=== PATIENT | female | born 1965 | race Caucasian/White ===

== ENCOUNTER 2019-08-10 06:46 | Inpatient (IN) | payer SELFPAY ==
[~2019-08-10] VITALS: Ht 162.5 cm; Wt 77.8 kg
[2019-08-10] MEDS ORDERED: RT-ALBUTEROL SULF 2.5 MG/3 ML PRE-MIX VIAL INH STA (07:04)
[2019-08-10] MEDS ORDERED: LACTATED RINGERS 1,000 ML IV ONE (07:04)
--- NOTE | 2019-08-10 07:10 | ED Respiratory ---
General Chief Complaint: Cough/Cold/Flu Symptoms Stated Complaint: FEVER/NAUSEA/DIZZINESS Source: patient Exam Limitations: no limitations History of Present Illness Date Seen by Provider: Aug 10, 2019 Time Seen by Provider: 06:54 Initial Comments Patient presents ER by private conveyance with chief complaint 4 days progressively worsening cough, fevers, body aches, malaise. Her cough has been productive. She does not have a history of asthma COPD or smoking. She has history of high blood pressure and hypothyroidism. She denies any heart history. No swelling around the hands or feet. No known exposures. She has been using Excedrin with her last dose sometime in the night to control her fever and malaise. No history of immunocompromise. She relates that she has not been on her medications for over a year. She is to follow with a female doctor here in [place] but she does not remember the name. Allergies and Home Medications Allergies Coded Allergies: morphine (Verified Allergy, Unknown, 08/10/19) Patient Home Medication List Home Medication List Reviewed: Yes Review of Systems Review of Systems Constitutional: see HPI, chills, fever, malaise EENTM: No ear discharge, No ear pain Respiratory: cough, phlegm; No short of breath, No wheezing Cardiovascular: No chest pain, No Hx of Intervention Gastrointestinal: No abdominal pain; nausea, vomiting Genitourinary: No discharge, No dysuria Musculoskeletal: No back pain, No joint pain Skin: No pruritus, No rash Psychiatric/Neurological: Denies Anxiety, Denies Depressed All Other Systems Reviewed Negative Unless Noted: Yes Past Evqohsc-Xxelxg-Xwcfhk Hx Patient Social History Alcohol Use: Denies Use Recreational Drug Use: No Smoking Status: Never a Smoker Recent Foreign Travel: No Contact w/Someone Who Travel: No Physical Exam Vital Signs - First Documented 08/10/19 08/10/19 06:55 07:59 Temp 37.2 Pulse 105 Resp 18 B/P (MAP) 178/112 (134) Pulse Ox 95 O2 Delivery Room Air O2 Flow Rate 2.00 Capillary Refill : Height: '" Weight: lbs. oz. kg; BMI Method: General Appearance: WD/WN, mild distress Eyes: Bilateral Eye Normal Inspection, Bilateral Eye PERRL, Bilateral Eye EOMI HEENT: PERRL/EOMI, normal ENT inspection, pharynx normal, other (clear mucoid effusion with mild retractions bilaterally without tenderness to manipulation bilateral TMs.) Neck: non-tender, full range of motion, supple, normal inspection Respiratory: no accessory muscle use, respiratory distress (minor, oxygen sats 92% on room air after walking to the room.), rhonchi (left worse than right), wheezing (bilateral) Cardiovascular: normal peripheral pulses, regular rate, rhythm, tachycardia (105 hr) Neurologic/Psychiatric: alert, normal mood/affect, oriented x 3 Skin: normal color, warm/dry Focused Exam Lactate Level 08/10/19 07:10: Lactic Acid Level 1.62 Lactic Acid Level Laboratory Tests Test 08/10/19 07:10 Lactic Acid Level 1.62 MMOL/L (0.50-2.00) Progress/Results/Core Measures Suspected Sepsis SIRS Temperature: Pulse: Respiratory Rate: Laboratory Tests 08/10/19 07:10: White Blood Count 7.7 Blood Pressure / Mean: 08/10/19 07:10: Lactic Acid Level 1.62 Laboratory Tests 08/10/19 07:10: Creatinine 0.99, INR Comment 1.0, Platelet Count 239, Total Bilirubin 0.4 Results/Orders Lab Results Laboratory Tests Test 08/10/19 07:10 08/10/19 08:55 Range/Units White Blood Count 7.7 4.3-11.0 10^3/uL Red Blood Count 4.96 4.35-5.85 10^6/uL Hemoglobin 15.8 11.5-16.0 G/DL Hematocrit 47 35-52 % Mean Corpuscular Volume 94 80-99 FL Mean Corpuscular Hemoglobin 32 25-34 PG Mean Corpuscular Hemoglobin Concent 34 32-36 G/DL Red Cell Distribution Width 12.4 10.0-14.5 % Platelet Count 239 130-400 10^3/uL Mean Platelet Volume 9.6 7.4-10.4 FL Neutrophils (%) (Auto) 72 42-75 % Lymphocytes (%) (Auto) 17 12-44 % Monocytes (%) (Auto) 10 0-12 % Eosinophils (%) (Auto) 0 0-10 % Basophils (%) (Auto) 1 0-10 % Neutrophils # (Auto) 5.5 1.8-7.8 X 10^3 Lymphocytes # (Auto) 1.3 1.0-4.0 X 10^3 Monocytes # (Auto) 0.8 0.0-1.0 X 10^3 Eosinophils # (Auto) 0.0 0.0-0.3 10^3/uL Basophils # (Auto) 0.1 0.0-0.1 10^3/uL Prothrombin Time 13.2 12.2-14.7 SEC INR Comment 1.0 0.8-1.4 Activated Partial Thromboplast Time 29 24-35 SEC Sodium Level 137 135-145 MMOL/L Potassium Level 3.4 L 3.6-5.0 MMOL/L Chloride Level 99 98-107 MMOL/L Carbon Dioxide Level 24 21-32 MMOL/L Anion Gap 14 5-14 MMOL/L Blood Urea Nitrogen 7 7-18 MG/DL Creatinine 0.99 0.60-1.30 MG/DL Estimat Glomerular Filtration Rate 58 BUN/Creatinine Ratio 7 Glucose Level 159 H 70-105 MG/DL Lactic Acid Level 1.62 0.50-2.00 MMOL/L Calcium Level 8.7 8.5-10.1 MG/DL Corrected Calcium 8.7 8.5-10.1 MG/DL Total Bilirubin 0.4 0.1-1.0 MG/DL Aspartate Amino Transf (AST/SGOT) 19 5-34 U/L Alanine Aminotransferase (ALT/SGPT) 9 0-55 U/L Alkaline Phosphatase 94 40-136 U/L Total Protein 7.4 6.4-8.2 GM/DL Albumin 4.0 3.2-4.5 GM/DL Blood Gas Puncture Site LEFT RADIAL Blood Gas Patient Temperature NA Arterial Blood pH 7.46 H 7.37-7.43 Arterial Blood Partial Pressure CO2 38 35-45 MMHG Arterial Blood Partial Pressure O2 64 L 79-93 MMHG Arterial Blood HCO3 27 23-27 MMOL/L Arterial Blood Total CO2 28.2 21.0-31.0 MMOL/L Arterial Blood Oxygen Saturation 93 L 94-100 % Arterial Blood Base Excess 3.1 H -2.5-2.5 MMOL/L Yovany Test YES-POS Blood Gas Ventilator Setting NO Blood Gas Inspired Oxygen 2 L Micro Results Microbiology 08/10/19 Influenza Types A,B Antigen (LYNNE) - Final, Complete My Orders Orders - BJORN IZQUIERDO Chest Pa/Lat (2 View) (08/10/19 07:01) Cbc With Automated Diff (08/10/19 07:01) Comprehensive Metabolic Panel (08/10/19 07:01) Influenza A And B Antigens (08/10/19 07:01) Ed Iv/Invasive Line Start (08/10/19 07:01) Ed Iv/Invasive Line Start (08/10/19 07:04) Lactated Ringers (Lr 1000 Ml Iv Solution (08/10/19 07:04) Albuterol Pre-Mix Nebs (Rt) (Proventil (08/10/19 07:04) Svn Small Volume Nebulizer (08/10/19 07:04) Ketorolac Injection (Toradol Injection) (08/10/19 07:15) Ondansetron Injection (Zofran Injectio (08/10/19 07:15) Arterial Blood Gas (08/10/19 08:07) Blood Culture (08/10/19 08:07) Sputum Culture (08/10/19 08:07) Protime With Inr (08/10/19 08:07) Partial Thromboplastin Time (08/10/19 08:07) Ed Iv/Invasive Line Start (08/10/19 08:07) Ed Iv/Invasive Line Start (08/10/19 08:07) Vital Signs Adult Sepsis Patie Q15M (08/10/19 08:07) O2 (08/10/19 08:07) Remove Rings In Anticipation O (08/10/19 08:07) Lactic Acid Analyzer (08/10/19 08:07) Ceftriaxone For Iv Use (Rocephin For I (08/10/19 08:15) Azithromycin Injection (Zithromax Inject (08/10/19 08:15) Ed Iv/Invasive Line Start (08/10/19 08:07) Ns Iv 500 Ml (Sodium Chloride 0.9%) (08/10/19 08:07) Medications Given in ED Current Medications Medications Dose Ordered Sig/Jose Route Start Time Stop Time Status Last Admin Dose Admin Azithromycin 500 mg/Sodium Chloride 250 ml @ 250 mls/hr ONCE ONCE IV 08/10/19 08:15 08/10/19 09:14 DC 08/10/19 08:25 250 MLS/HR Ceftriaxone Sodium 1000 mg/ Sterile Water 10 ml @ 200 mls/hr ONCE ONCE IV 08/10/19 08:15 08/10/19 08:17 DC 08/10/19 08:24 200 MLS/HR Ketorolac Tromethamine 30 mg ONCE ONCE IVP 08/10/19 07:15 08/10/19 07:16 DC 08/10/19 08:25 30 MG Lactated Ringer's 1,000 ml @ 0 mls/hr Q0M ONCE IV 08/10/19 07:04 08/10/19 07:05 DC 08/10/19 07:26 0 MLS/HR Ondansetron HCl 4 mg ONCE ONCE IVP 08/10/19 07:15 08/10/19 07:16 DC 08/10/19 07:25 4 MG Sodium Chloride 500 ml @ 0 mls/hr Q0M ONCE IV 08/10/19 08:07 08/10/19 08:10 DC 08/10/19 08:25 0 MLS/HR Vital Signs/I&O 08/10/19 08/10/19 06:55 07:59 Temp 37.2 Pulse 105 99 Resp 18 18 B/P (MAP) 178/112 (134) 103/84 (90) Pulse Ox 95 92 O2 Delivery Room Air Nasal Cannula O2 Flow Rate 2.00 Capillary Refill : Progress Note #1: Time: 07:11 Progress Note Reassess her after albuterol. Ondansetron for her nausea. She is not having any fever at the moment but we can do some Toradol for body aches liter of lactated Ringer's to start. Technically she meets sepsis criteria however if she has influenza will not drive any further. We'll get a chest x-ray to help differenti ate a pneumonia from a bronchitis. Labs. Progress Note #2: Time: 07:52 Progress Note Breathing treatment the patient's wheezing and rhonchi 1 week. However her oxygen sats got down to about 86%. We tried moving the probe as well as putting a probe on her earlobe and still really getting about 88% on room air. Put her on 2 L nasal cannula and this brought her up to the 90s. 500 cc of fluids were in and her heart rate was about 100. Progress Note #3: Time: 08:10 Progress Note Her labs are unremarkable. Oxygen saturation is still about 92-93% on 2 L by nasal cannula. Heart rate of 100. Plan to do the full sepsis evaluation with an ABG and give her another 500 cc of fluids to bring her up over 20 mils liters per kilogram. Patient says she really doesn't feel much better than when we started. Blood pressures better at 169/79. We'll pursue inpatient management for her hypoxia secondary to possible occult pneumonia. Rocephin and azithromycin started. Diagnostic Imaging Diagonstic Imaging: Xray Plain Films/CT/US/NM/MRI: chest (two-view) Comments No acute cardiopulmonary process noted on the two-view chest x-ray. NAME: GELY NICHOLS [facility] REC#: [id number] PT STATUS: REG ER : 1965 PHYSICIAN: BJORN IZQUIERDO MD ADMIT DATE: 08/10/19/ER FS Signed Date of Exam:08/10/19 CHEST PA/LAT (2 VIEW) INDICATION: Cough COMPARISON: None. FINDINGS: Frontal and lateral views the chest demonstrate clear lungs bilaterally. The heart size is normal. There is no pneumothorax. Osseous structures are normal. IMPRESSION: No acute findings. Normal chest. Dictated by: Dictated on workstation # [id number] Dict: 08/10/1937 Trans: 08/10/19 0737 [facility] [id number] Interpreted by: ELISE AGUIRRE Electronically signed by: ELISE AGUIRRE 08/10/19 0737 Reviewed: Reviewed by Me Departure Communication (Admissions) Time/Spoke to Admitting Phy: 09:15 Discussed case lab imaging findings with Dr. Donald plan for antibiotics oxygen and fluids and she agrees with admission to the floor. Impression Primary Impression: Pneumonia Qualified Codes: J18.9 - Pneumonia, unspecified organism Additional Impressions: Sepsis Qualified Codes: A41.9 - Sepsis, unspecified organism; R65.20 - Severe sepsis without septic shock; J96.01 - Acute respiratory failure with hypoxia Hypoxia Disposition: ADMITTED INPATIENT Condition: Stable Admissions Decision to Admit Reason: Admit from ER (General) Decision to Admit/Date: Aug 10, 2019 Time/Decision to Admit Time: 09:00 Departure-Patient Inst. Referrals: NO,LOCAL PHYSICIAN (PCP/Family) Primary Care Physician BJORN IZQUIERDO Aug 10, 2019 07:10
[2019-08-10] MEDS ORDERED: ONDANSETRON 4 MG/2 ML (SDV) Z0FRAN IVP ONE (07:15)
[2019-08-10] MEDS ORDERED: KETOROLAC 30 MG/ML VIAL IVP ONE (07:15)
[2019-08-10 07:35] LABS: BASOPHILS % (AUTO) 1 % (0-10); EOSINOPHILS % (AUTO) 0 % (0-10); HEMATOCRIT 47 % (35-52); HEMOGLOBIN 15.8 G/DL (11.5-16.0); LYMPHOCYTES % (AUTO) 17 % (12-44); MEAN CORPUSCULAR HEMOGLOBIN 32 PG (25-34); MEAN CORPUSCULAR HGB CONC 34 G/DL (32-36); MEAN CORPUSCULAR VOLUME 94 FL (80-99); MEAN PLATELET VOLUME 9.6 FL (7.4-10.4); MONOCYTES % (AUTO) 10 % (0-12); PLATELET COUNT 239 10^3/uL (130-400); RED CELL DISTRIBUTION WIDTH 12.4 % (10.0-14.5); WHITE BLOOD COUNT 7.7 10^3/uL (4.3-11.0)
[2019-08-10 07:36] LABS: BASOPHILS # (AUTO) 0.1 10^3/uL (0.0-0.1); LYMPHOCYTES # (AUTO) 1.3 X 10^3 (1.0-4.0); MONOCYTES # (AUTO) 0.8 X 10^3 (0.0-1.0); NEUTROPHILS # (AUTO) 5.5 X 10^3 (1.8-7.8); NEUTROPHILS % (AUTO) 72 % (42-75)
--- NOTE | 2019-08-10 07:38 | Diagnostic Imaging Report ---
INDICATION: Cough COMPARISON: None. FINDINGS: Frontal and lateral views the chest demonstrate clear lungs bilaterally. The heart size is normal. There is no pneumothorax. Osseous structures are normal. IMPRESSION: No acute findings. Normal chest. Dictated by: Dictated on workstation # [id number]
[2019-08-10 07:52] LABS: BILIRUBIN,TOTAL 0.4 MG/DL (0.1-1.0); CALCIUM 8.7 MG/DL (8.5-10.1); CREATININE SERUM 0.99 MG/DL (0.60-1.30); POTASSIUM 3.4 MMOL/L (3.6-5.0); TOTAL PROTEIN 7.4 GM/DL (6.4-8.2)
[2019-08-10 07:59] VITALS: BP 103/84
[2019-08-10] MEDS ORDERED: NS IV 500 ML 500 ML IV ONE (08:07)
[2019-08-10] MEDS ORDERED: cefTRIAXone FOR IV USE 1,000 MG in WATER (STERILE) FOR INJECTION 10 ML IV ONE (08:15)
[2019-08-10] MEDS ORDERED: AZITHROMYCIN INJECTION 500 MG in NS (IVPB) 250 ML IV ONE (08:15)
[2019-08-10 09:03] LABS: PROTHROMBIN TIME PATIENT 13.2 SEC (12.2-14.7)
[2019-08-10 09:06] LABS: ABG BASE EXCESS 3.1 MMOL/L (-2.5-2.5); ABG OXYGEN SATURATION 93 % (94-100); ABG PCO2 38 MMHG (35-45); ABG PH 7.46 (7.37-7.43); ABG PO2 64 MMHG (79-93); ABG TCO2 28.2 MMOL/L (21.0-31.0); ALLENS TEST YES-POS
[2019-08-10 09:07] LABS: INSPIRED O2 2 L; VENTILATOR NO
[2019-08-10 10:22] VITALS: BP 139/87
[2019-08-10] MEDS ORDERED: MECLIZINE 25 MG (ANTIVERT) TAB PO PRN (10:45)
[2019-08-10] MEDS ORDERED: ANTACID SUSP 30 ML UDC (MYLANTA) PO PRN (10:45)
[2019-08-10] MEDS ORDERED: KETOROLAC 15 MG/ML VIAL IVP PRN (10:45)
[2019-08-10] MEDS ORDERED: ONDANSETRON 4 MG/2 ML (SDV) Z0FRAN IVP PRN (10:45)
[2019-08-10] MEDS: LACTATED RINGERS 1,000 ML IV SCH ×3 (11:12→23:26)
--- NOTE | 2019-08-10 11:17 | NUR ---
GELY NICHOLS admitted to room 412-1, with an admitting diagnosis of sepsis/pneum/hypoxia, on 08/10/19 from , accompanied by NANCY .GELY NICHOLS introduced to surroundings, call light, bed controls, phone, TV, temperature control, lights, meal times, smoking policy, visitor policy, side rail policy, bathrooms and showers. Patient Rights given to patient in the handbook. GELY NICHOLS verbalizes understanding that [facility] is not responsible for the loss or damage to any personal effects or valuables that are kept in the patients posession during their hospitalization. GELY NICHOLS verbalizes understanding of Interdisciplinary Patient Education. Patient and/or family were informed about the Rapid Response Team and its purpose.
[2019-08-10 11:30] VITALS: BP 178/112
[2019-08-10] MEDS: cefTRIAXone 1,000 MG/SWFI 10 ML IV PUSH IV SCH ×2 (11:42)
[2019-08-10] MEDS: AZITHROMYCIN 250 MG TAB (ZITHROMAX) PO SCH (11:44)
[2019-08-10 12:00] VITALS: BP 161/86
[2019-08-10] MEDS ORDERED: FLU QUADRIvalent (5+ YOA) 2019-2020 (AFLURIA) 0.5 ML IM ONE (12:30)
--- NOTE | 2019-08-10 12:33 | History & Physical-Hospitalist ---
History of Present Illness HPI/Chief Complaint CC: Fever with hypoxia and PNA HPI: This is a 54yoWF who does not have a PCP but is to take thyroid medicine and Toprol who has not taken the meds for "years" who presented to the [facility] ER with dyspnea and fever and found to have hypoxia. CXR was not revealing of infiltrate but clinically she has PNA and will be treated as such. 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 Influenza was negative and HR has improved from 110 to the 90's now. Source: patient, RN/MD Exam Limitations: no limitations Date Seen 08/10/19 Time Seen by a Provider: 11:45 Attending Physician Asuncion Machuca DO PCP No,Local Physician Referring Physician Date of Admission Aug 10, 2019 at 09:31 Home Medications & Allergies Home Medications Reviewed patient Home Medication Reconciliation performed by pharmacy medication reconciliations survey technician and/or nursing. Patients Allergies have been reviewed. Allergies Allergies Coded Allergies morphine (Verified Allergy, Unknown, 08/10/19) Past Gstvutx-Hzwwfd-Kmnvhd Hx Past Med/Social Hx: Reviewed Nursing Past Med/Soc Hx, Reviewed and Corrections made Patient Social History Marrital Status: single Employed/Student: employed ([employer]) Alcohol Use: Denies Use Recreational Drug Use: No Smoking Status: Former Smoker 2nd Hand Smoke Exposure: No Recent Foreign Travel: No Contact w/other who traveled: No Recent Hopitalizations: No Recent Infectious Disease Expo: No Seasonal Allergies Seasonal Allergies: No Past Medical History Surgeries: Hysterectomy, Thyroidectomy Cardiac: Hypertension Hysterectomy Endocrine: Hypothyroidsim History of Blood Disorders: No Review of Systems Constitutional: see HPI, chills, diaphoresis, dizziness, fever, malaise, weakness EENTM: no symptoms reported Respiratory: cough, dyspnea on exertion, short of breath, wheezing Cardiovascular: no symptoms reported Gastrointestinal: no symptoms reported Genitourinary: no symptoms reported Musculoskeletal: no symptoms reported Skin: no symptoms reported Psychiatric/Neurological: No Symptoms Reported All Other Systems Reviewed Negative Unless Noted: Yes Physical Exam Physical Exam Vital Signs Vital Signs - First Documented 08/10/19 08/10/19 08/10/19 06:55 07:59 09:51 Temp 37.2 Pulse 105 Resp 18 B/P (MAP) 178/112 (134) Pulse Ox 95 O2 Delivery Room Air O2 Flow Rate 2.00 FiO2 94 Capillary Refill : Less Than 3 Seconds Height, Weight, BMI Height: '" Weight: lbs. oz. kg; 27.00 BMI Method: General Appearance: WD/WN, Chronically ill, Mild Distress Eyes: Right Eye Normal Inspection, Right Eye PERRL HEENT: PERRL/EOMI, Normal ENT Inspection, Pharynx Normal, Moist Mucous M embranes Neck: Full Range of Motion, Normal Inspection, Non Tender Respiratory: Chest Non Tender, No Accessory Muscle Use, No Respiratory Distress, Crackles, Decreased Breath Sounds, Wheezing Cardiovascular: Regular Rate, Rhythm, No Edema, No Gallop, No JVD, No Murmur, Normal Peripheral Pulses Gastrointestinal: Normal Bowel Sounds, No Organomegaly, No Pulsatile Mass, Non Tender, Soft Back: Normal Inspection, No CVA Tenderness, No Vertebral Tenderness Extremity: Normal Capillary Refill, Normal Inspection, Normal Range of Motion, Non Tender, No Calf Tenderness, No Pedal Edema Neurologic/Psychiatric: Alert, Oriented x3, No Motor/Sensory Deficits, Normal Mood/Affect Skin: Normal Color, Warm/Dry Lymphatic: No Adenopathy Results Results/Procedures Labs Laboratory Tests 08/10/19 07:10 Patient resulted labs reviewed. Assessment/Plan Admission Diagnosis Assessment: Sepsis PNA clinically without infiltrate on CXR likely due to dehydration will repeat tomorrow Wheezing with hypoxia and fever Former smoker Non-compliant with thyroid supplement and Toprol checking TSH Plan: Abx Nebs O2 IVF Anti-tussives IV steroids Check TSH Admission Status: Inpatient Order (span 2 midnights) Reason for Inpatient Admission: Hypoxia with fever and PNA Diagnosis/Problems Diagnosis/Problems (1) Sepsis Status: Acute Qualifiers: Sepsis type: sepsis due to unspecified organism Sepsis acute organ dysfunction status: with acute organ dysfunction Severe sepsis acute organ dysfunction type: acute respiratory failure Acute respiratory failure type: with hypoxia Severe sepsis shock status: without septic shock Qualified Codes: A41.9 - Sepsis, unspecified organism; R65.20 - Severe sepsis without septic shock; J96.01 - Acute respiratory failure with hypoxia (2) Pneumonia Status: Acute Qualifiers: Pneumonia type: due to unspecified organism Laterality: unspecified laterality Lung location: unspecified part of lung Qualified Codes: J18.9 - Pneumonia, unspecified organism (3) Hypoxia Status: Acute Clinical Quality Measures DVT/VTE Risk/Contraindication: Risk Factor Score Per Nursin RFS Level Per Nursing on Admit: 2=Moderate ASUNCION MACHUCA DO Aug 10, 2019 12:33
[2019-08-10] MEDS: methylPREDNISolone 40 MG/ML (Solu-MEDROL) VIAL IV SCH ×3 (13:58→23:26)
[2019-08-10] MEDS: ENOXAPARIN 40 MG/0.4 ML (LOVENOX) SYR SC SCH (13:59)
[2019-08-10] MEDS: guaiFENesin/CODEINE (ROBITUSSIN AC) 10ML UDC PO PRN ×2 (13:59→18:12)
[2019-08-10] MEDS ORDERED: TETR15DR16 OU (14:29)
[2019-08-10] MEDS ORDERED: IBUP-2473 PO (14:29)
--- NOTE | 2019-08-10 14:29 | NUR ---
SPOKE WITH THE PT TO COMPLETE THE MED REC. PT STATES SHE IS PRESCRIBED LEVOTHYROXINE AND METOPROLOL BUT DOES NOT TAKE THEM AND IT HAS BEEN SEVERAL MONTHS SINCE SHE HAS TAKEN THEM CONSISTENTLY. ACCORDING TO THE PT SHE ONLY USES OTC MEDS IBUPROFEN PRN AND VISINE REDNESS DROPS
[2019-08-10] MEDS: RT-ALBUTEROL SULF 2.5 MG/3 ML PRE-MIX VIAL INH SCH ×2 (15:33→21:06)
[2019-08-10 15:59] VITALS: BP 141/69
[2019-08-10] MEDS: ACETAMINOPHEN 500 MG TAB (TYLENOL) PO PRN (18:12)
[2019-08-10 19:45] VITALS: BP 169/94
[2019-08-11] VITALS (7 sets, daily range): BP systolic 135–167; BP diastolic 74–92
[2019-08-11] MEDS: LACTATED RINGERS 1,000 ML IV SCH ×2 (01:21→08:10)
[2019-08-11] MEDS: RT-ALBUTEROL SULF 2.5 MG/3 ML PRE-MIX VIAL INH SCH ×4 (01:43→20:30)
[2019-08-11 04:05] LABS: BASOPHILS % (AUTO) 0 % (0-10); EOSINOPHILS % (AUTO) 0 % (0-10); HEMATOCRIT 40 % (35-52); HEMOGLOBIN 13.6 G/DL (11.5-16.0); LYMPHOCYTES # (AUTO) 0.7 X 10^3 (1.0-4.0); LYMPHOCYTES % (AUTO) 11 % (12-44); MEAN CORPUSCULAR HEMOGLOBIN 32 PG (25-34); MEAN CORPUSCULAR HGB CONC 34 G/DL (32-36); MEAN CORPUSCULAR VOLUME 94 FL (80-99); MEAN PLATELET VOLUME 9.8 FL (7.4-10.4); MONOCYTES # (AUTO) 0.2 X 10^3 (0.0-1.0); MONOCYTES % (AUTO) 3 % (0-12); NEUTROPHILS # (AUTO) 5.4 X 10^3 (1.8-7.8); NEUTROPHILS % (AUTO) 87 % (42-75); PLATELET COUNT 215 10^3/uL (130-400); RED CELL DISTRIBUTION WIDTH 12.7 % (10.0-14.5); WHITE BLOOD COUNT 6.2 10^3/uL (4.3-11.0)
[2019-08-11 04:23] LABS: ALANINE AMINOTRANSFERASE 12 U/L (0-55); ALBUMIN 3.7 GM/DL (3.2-4.5); ALKALINE PHOSPHATASE 81 U/L (40-136); BILIRUBIN,TOTAL 0.2 MG/DL (0.1-1.0); BUN/CREATININE RATIO 12; CALCIUM 8.6 MG/DL (8.5-10.1); CARBON DIOXIDE 20 MMOL/L (21-32); CHLORIDE 109 MMOL/L (98-107); CREATININE SERUM 0.77 MG/DL (0.60-1.30); GFR ESTIMATED > 60; GLUCOSE 189 MG/DL (70-105); POTASSIUM 3.3 MMOL/L (3.6-5.0); SODIUM 141 MMOL/L (135-145); TOTAL PROTEIN 6.6 GM/DL (6.4-8.2)
[2019-08-11 04:57] LABS: LYMPHOCYTES % (MANUAL) 13 %; MONOCYTES % (MANUAL) 2 %; NEUTROPHILS % (MANUAL) 85 %
[2019-08-11] MEDS: methylPREDNISolone 40 MG/ML (Solu-MEDROL) VIAL IV SCH ×3 (05:20→18:23)
[2019-08-11] MEDS: FLUTICASONE NASAL SPRAY (FLONASE) 16 GM BTL NS SCH (08:14)
--- NOTE | 2019-08-11 09:50 | Diagnostic Imaging Report ---
Indication: Dyspnea, pneumonia. Comparison: 08/10/2019. Discussion: Two views of the chest were obtained. Stable normal heart size. No focal consolidation, pleural fluid, or pneumothorax. No osseous abnormality. Impression: 1. Stable negative chest. Dictated by: Dictated on workstation # [id number]
[2019-08-11] MEDS: RT-ALBUTEROL SULF 2.5 MG/3 ML PRE-MIX VIAL INH PRN (10:48)
[2019-08-11] MEDS ORDERED: RT-ALBUTEROL SULF 2.5 MG/3 ML PRE-MIX VIAL INH ONE (11:00)
[2019-08-11] MEDS: ACETAMINOPHEN 500 MG TAB (TYLENOL) PO PRN (11:04)
[2019-08-11 11:21] LABS: ABG BASE EXCESS -2.8 MMOL/L (-2.5-2.5); ABG OXYGEN SATURATION 93 % (94-100); ABG PCO2 27 MMHG (35-45); ABG PH 7.49 (7.37-7.43); ABG PO2 61 MMHG (79-93)
[2019-08-11 11:22] LABS: ALLENS TEST YES-POS; INSPIRED O2 2; PATIENT TEMP 36.8; VENTILATOR NO
[2019-08-11] MEDS: ENOXAPARIN 40 MG/0.4 ML (LOVENOX) SYR SC SCH (12:29)
[2019-08-11] MEDS ORDERED: LEVOTHYROXINE 25 MCG (LEVOTHROID) TAB PO NR (13:15)
--- NOTE | 2019-08-11 13:15 | Progress Note - Hospitalist ---
Subjective HPI/CC On Admission Date Seen by Provider: Aug 11, 2019 Time Seen by Provider: 09:30 CC: Fever with hypoxia and PNA HPI: This is a 54yoWF who does not have a PCP but is to take thyroid medicine and Toprol who has not taken the meds for "years" who presented to the [facility] ER with dyspnea and fever and found to have hypoxia. CXR was not revealing of infiltrate but clinically she has PNA and will be treated as such. 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 Influenza was negative and HR has improved from 110 to the 90's now. Subjective/Events-last exam Patient doing ok but dyspneic after the least bit of activity Wheezing a bit better Dyspnea was quite significant so checked CXR which was stable and d-dimer essentially normal and repeat ABG revealed hypoxemia 61 with no acidosis so gave Nebs and O2 and Xanax to help her with the tachypnea Maintained on Lovenox since admit Thyroid supplement started since TSH 21 BP stable Review of Systems General: Fatigue Pulmonary: Dyspnea, Cough Focused Exam Lactate Level 08/10/19 07:10: Lactic Acid Level 1.62 Objective Exam Vital Signs Vital Signs Date Time Temp Pulse Resp B/P (MAP) Pulse Ox O2 Delivery O2 Flow Rate FiO2 08/11/19 14:59 97 Nasal Cannula 2.00 08/11/19 12:15 36.2 102 24 157/78 (104) 08/11/19 08:00 94 Capillary Refill : Less Than 3 SecondsLess Than 3 Seconds General Appearance: WD/WN, Chronically ill, Mild Distress Respiratory: No Respiratory Distress, Accessory Muscle Use, Crackles, Decreased Breath Sounds Cardiovascular: Regular Rate, Rhythm Neurologic/Psychiatric: Alert, Oriented x3, No Motor/Sensory Deficits, Normal Mood/Affect Results/Procedures Lab Laboratory Tests 08/11/19 03:33 Patient resulted labs reviewed. Assessment/Plan Assessment and Plan Assess & Plan/Chief Complaint Assessment: Sepsis PNA clinically without infiltrate on CXR Wheezing with hypoxia and fever requiring O2 and Nebs Former smoker Non-compliant with thyroid supplement and Toprol checked TSH and 21 so will start low dose thyroid supplement today Plan: Abx Nebs O2 IVF Anti-tussives IV steroids Thyroid meds Lovenox Diagnosis/Problems Diagnosis/Problems (1) Sepsis Status: Acute Qualifiers: Sepsis type: sepsis due to unspecified organism Sepsis acute organ dysfunction status: with acute organ dysfunction Severe sepsis acute organ dysfunction type: acute respiratory failure Acute respiratory failure type: with hypoxia Severe sepsis shock status: without septic shock Qualified Codes: A41.9 - Sepsis, unspecified organism; R65.20 - Severe sepsis without septic shock; J96.01 - Acute respiratory failure with hypoxia (2) Pneumonia Status: Acute Qualifiers: Pneumonia type: due to unspecified organism Laterality: unspecified laterality Lung location: unspecified part of lung Qualified Codes: J18.9 - Pneumonia, unspecified organism (3) Hypoxia Status: Acute Clinical Quality Measures DVT/VTE Risk/Contraindication: Risk Factor Score Per Nursin RFS Level Per Nursing on Admit: 2=Moderate YVETTE THAYER DO Aug 11, 2019 13:15
[2019-08-11] MEDS: ALPRAZolam 0.5 MG (XANAX) TAB PO PRN ×2 (13:33→18:50)
[2019-08-11] MEDS ORDERED: KCL 10 MEQ TAB (MICRO K) PO NR (17:00)
[2019-08-11] MEDS ORDERED: DOCUSATE SODIUM 100 MG (COLACE) CAP PO ONE (22:52)
[2019-08-11] MEDS: DOCUSATE SODIUM 100 MG (COLACE) CAP PO SCH (22:56)
[2019-08-12] MEDS: methylPREDNISolone 40 MG/ML (Solu-MEDROL) VIAL IV SCH ×2 (00:27→06:29)
[2019-08-12] MEDS: RT-ALBUTEROL SULF 2.5 MG/3 ML PRE-MIX VIAL INH SCH ×5 (02:20→20:16)
[2019-08-12 03:07] VITALS: BP 161/93
[2019-08-12 05:51] LABS: BASOPHILS % (AUTO) 0 % (0-10); EOSINOPHILS % (AUTO) 0 % (0-10); HEMATOCRIT 40 % (35-52); HEMOGLOBIN 13.7 G/DL (11.5-16.0); LYMPHOCYTES # (AUTO) 1.2 X 10^3 (1.0-4.0); LYMPHOCYTES % (AUTO) 5 % (12-44); MEAN CORPUSCULAR HEMOGLOBIN 33 PG (25-34); MEAN CORPUSCULAR HGB CONC 34 G/DL (32-36); MEAN CORPUSCULAR VOLUME 95 FL (80-99); MEAN PLATELET VOLUME 10.6 FL (7.4-10.4); MONOCYTES # (AUTO) 1.2 X 10^3 (0.0-1.0); MONOCYTES % (AUTO) 5 % (0-12); NEUTROPHILS # (AUTO) 22.5 X 10^3 (1.8-7.8); NEUTROPHILS % (AUTO) 90 % (42-75); PLATELET COUNT 211 10^3/uL (130-400)
[2019-08-12 06:10] LABS: BAND NEUTROPHILS 13 %; BASOPHILS % (MANUAL) 0 %; EOSINOPHILS % (MANUAL) 0 %; LYMPHOCYTES % (MANUAL) 2 %; MONOCYTES % (MANUAL) 0 %; NEUTROPHILS % (MANUAL) 84 %; REACTIVE LYMPHOCYTES 1 %; TOXIC GRANULATION/VACUOLAZATIO 1+
[2019-08-12 06:23] LABS: ALANINE AMINOTRANSFERASE 14 U/L (0-55); ALBUMIN 3.8 GM/DL (3.2-4.5); ALKALINE PHOSPHATASE 82 U/L (40-136); BILIRUBIN,TOTAL 0.2 MG/DL (0.1-1.0); BUN/CREATININE RATIO 15; CARBON DIOXIDE 21 MMOL/L (21-32); CHLORIDE 109 MMOL/L (98-107); CREATININE SERUM 0.75 MG/DL (0.60-1.30); GFR ESTIMATED > 60; GLUCOSE 169 MG/DL (70-105); POTASSIUM 3.3 MMOL/L (3.6-5.0); SODIUM 143 MMOL/L (135-145); TOTAL PROTEIN 6.8 GM/DL (6.4-8.2)
[2019-08-12] MEDS ORDERED: LEVOTHYROXINE 50 MCG (LEVOTHROID) TAB PO ONE (06:30)
[2019-08-12] MEDS ORDERED: LEVOTHYROXINE 75 MCG (LEVOTHROID) TABLET PO NR (06:52)
[2019-08-12] MEDS ORDERED: predniSONE 20 MG TAB PO SCH (07:00)
[2019-08-12] MEDS ORDERED: KCL 10 MEQ TAB (MICRO K) PO SCH (07:00)
[2019-08-12 08:03] VITALS: BP 169/104
[2019-08-12] MEDS: AZITHROMYCIN 250 MG TAB (ZITHROMAX) PO SCH (10:38)
[2019-08-12] MEDS: DOCUSATE SODIUM 100 MG (COLACE) CAP PO SCH (10:38)
[2019-08-12] MEDS: cefTRIAXone 1,000 MG/SWFI 10 ML IV PUSH IV SCH ×2 (10:39)
[2019-08-12] MEDS: FLUTICASONE NASAL SPRAY (FLONASE) 16 GM BTL NS SCH (10:39)
[2019-08-12] MEDS: ACETAMINOPHEN 500 MG TAB (TYLENOL) PO PRN ×2 (10:40→19:53)
--- NOTE | 2019-08-12 10:40 | NUR ---
TYLENOL PO FOR HEADACHE.
--- NOTE | 2019-08-12 11:40 | NUR ---
XANAX 0.5 PO FOR ANXIETY.
[2019-08-12] MEDS: ENOXAPARIN 40 MG/0.4 ML (LOVENOX) SYR SC SCH (11:42)
[2019-08-12] MEDS: ALPRAZolam 0.5 MG (XANAX) TAB PO PRN (11:42)
[2019-08-12 11:53] VITALS: BP 159/83
[2019-08-12] MEDS ORDERED: KCL 20 MEQ TAB (K-DUR) PO NR (15:30)
--- NOTE | 2019-08-12 15:31 | Progress Note - Hospitalist ---
Subjective HPI/CC On Admission Date Seen by Provider: Aug 12, 2019 Time Seen by Provider: 09:05 CC: Fever with hypoxia and PNA HPI: This is a 54yoWF who does not have a PCP but is to take thyroid medicine and Toprol who has not taken the meds for "years" who presented to the [facility] ER with dyspnea and fever and found to have hypoxia. CXR was not revealing of infiltrate but clinically she has PNA and will be treated as such. 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 Influenza was negative and HR has improved from 110 to the 90's now. Subjective/Events-last exam She continues to feel short of breath. She continues to have a dry cough. She denies any fevers or chills. She denies any chest pain. She denies any abdominal pain, nausea, vomiting, or diarrhea. Focused Exam Lactate Level 08/10/19 07:10: Lactic Acid Level 1.62 Objective Exam Vital Signs Vital Signs Date Time Temp Pulse Resp B/P (MAP) Pulse Ox O2 Delivery O2 Flow Rate FiO2 08/12/19 11:53 36.2 95 22 159/83 (108) 95 Nasal Cannula 2.50 08/11/19 08:00 94 Capillary Refill : Less Than 3 SecondsLess Than 3 Seconds General Appearance: No Apparent Distress, WD/WN, Anxious HEENT: PERRL/EOMI, Pharynx Normal Neck: Normal Inspection, Supple Respiratory: No Respiratory Distress, Wheezing Cardiovascular: Regular Rate, Rhythm, No Edema, No Murmur Gastrointestinal: Normal Bowel Sounds, Non Tender, Soft Extremity: Normal Inspection, Non Tender, No Pedal Edema Neurologic/Psychiatric: Alert, Oriented x3, No Motor/Sensory Deficits, Normal Mood/Affect Skin: Normal Color, Warm/Dry Lymphatic: No Adenopathy Results/Procedures Lab Laboratory Tests 08/12/19 04:45 Patient resulted labs reviewed. Imaging: Reviewed Imaging Report Assessment/Plan Assessment and Plan Assess & Plan/Chief Complaint Acute hypoxemic respiratory failure Likely COPD with acute exacerbation Chest x-ray without evidence of pneumonia Procalcitonin normal Stop Rocephin Likely viral infection Continue steroids MAT protocol Obtain CT chest for further evaluation Leukocytosis No evidence of other infectious source of this time Obtain CT chest Likely due to steroids Hypothyroidism TSH greater than 20 Continue Synthroid Hypokalemia Continue to monitor and replace as needed Financial difficulties Consult social work for assistance with medications DVT prophylaxis: Lovenox Diagnosis/Problems Diagnosis/Problems (1) Acute respiratory failure with hypoxia Status: Acute (2) COPD with acute exacerbation Status: Acute (3) Leukocytosis Status: Acute (4) Hypothyroidism Status: Acute Clinical Quality Measures DVT/VTE Risk/Contraindication: Risk Factor Score Per Nursin RFS Level Per Nursing on Admit: 2=Moderate SHUBHAM YATES MD Aug 12, 2019 15:31
[2019-08-12 16:00] VITALS: BP 150/78
[2019-08-12 16:21] VITALS: BP 150/78
[2019-08-12] MEDS ORDERED: IOHEXOL 350 MG/ML 100 ML (OMNIPAQUE 350) VIAL IV ONE (16:45)
[2019-08-12] MEDS ORDERED: NS 100 ML (IVPB) BAG IV ONE (16:45)
[2019-08-12] MEDS ORDERED: HOLD METFORMIN - RECEIVED CONTRAST 20 ML VIAL IV SCH (16:45)
--- NOTE | 2019-08-12 17:45 | Diagnostic Imaging Report ---
PROCEDURE: CT chest with contrast only. TECHNIQUE: Multiple contiguous axial images were obtained through the chest after administration of intravenous contrast. Auto Exposure Controls were utilized during the CT exam to meet ALARA standards for radiation dose reduction. INDICATION: Sepsis, hypoxia, and cough. FINDINGS: No focal pulmonary consolidation. No suspicious mass or dominant nodularity. 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 Supraclavicular fossa unremarkable. No thoracic lymphadenopathy. No effusion or pneumothorax. The visualized upper abdomen is nonacute. IMPRESSION: No focal infiltrate, effusion, or lung mass. No thoracic adenopathy. Thyroidectomy noted with likely isthmic nodule 1.4 cm. Dictated by: Dictated on workstation # [id number]
[2019-08-12 19:49] VITALS: BP 165/81
[2019-08-12] MEDS: guaiFENesin/CODEINE (ROBITUSSIN AC) 10ML UDC PO PRN (19:53)
--- NOTE | 2019-08-12 22:00 | NUR ---
This RN checked in on pt, pt sitting up in bed, pt states that she is "feeling better" after sleeping a little bit, pt states she was awakened because she was having a vivid dream of an old lady being beside her bed. pt states she frequently has very vivid dreams that cause her to awaken & be frightened especially when she isn't feeling well.
[2019-08-13] VITALS (7 sets, daily range): BP systolic 142–169; BP diastolic 69–101
[2019-08-13] MEDS: RT-ALBUTEROL SULF 2.5 MG/3 ML PRE-MIX VIAL INH SCH (02:03)
[2019-08-13] MEDS: ALPRAZolam 0.5 MG (XANAX) TAB PO PRN (04:08)
--- NOTE | 2019-08-13 04:13 | NUR ---
0410-pt requesting pain medications & Xanax. medication options discussed with pt, pt requested Toradol & Xanax. pt voicing pain across the upper abd with coughing. pt refusing prn cough medication-pt stated "I think I was hallucinating not just dreaming, I was seeing my kids too and an old lady. I cant handle that."
[2019-08-13] MEDS ORDERED: LEVOTHYROXINE 125 MCG (LEVOTHROID) TABLET PO SCH (06:30)
[2019-08-13 06:57] LABS: BASOPHILS % (AUTO) 0 % (0-10); EOSINOPHILS % (AUTO) 0 % (0-10); HEMATOCRIT 40 % (35-52); HEMOGLOBIN 13.4 G/DL (11.5-16.0); LYMPHOCYTES # (AUTO) 2.6 X 10^3 (1.0-4.0); LYMPHOCYTES % (AUTO) 13 % (12-44); MEAN CORPUSCULAR HEMOGLOBIN 32 PG (25-34); MEAN CORPUSCULAR HGB CONC 33 G/DL (32-36); MEAN CORPUSCULAR VOLUME 95 FL (80-99); MEAN PLATELET VOLUME 9.6 FL (7.4-10.4); MONOCYTES # (AUTO) 1.1 X 10^3 (0.0-1.0); MONOCYTES % (AUTO) 5 % (0-12); NEUTROPHILS # (AUTO) 16.5 X 10^3 (1.8-7.8); NEUTROPHILS % (AUTO) 82 % (42-75); PLATELET COUNT 219 10^3/uL (130-400); RED CELL DISTRIBUTION WIDTH 13.2 % (10.0-14.5); WHITE BLOOD COUNT 20.3 10^3/uL (4.3-11.0)
[2019-08-13] MEDS ORDERED: predniSONE 20 MG TAB PO SCH (07:00)
[2019-08-13 07:18] LABS: BUN/CREATININE RATIO 16; CALCIUM 8.5 MG/DL (8.5-10.1); CARBON DIOXIDE 24 MMOL/L (21-32); CHLORIDE 106 MMOL/L (98-107); CREATININE SERUM 0.69 MG/DL (0.60-1.30); GFR ESTIMATED > 60; GLUCOSE 87 MG/DL (70-105); MAGNESIUM 1.8 MG/DL (1.6-2.4); POTASSIUM 3.2 MMOL/L (3.6-5.0); SODIUM 144 MMOL/L (135-145)
--- NOTE | 2019-08-13 09:35 | NUR ---
SPO2 DROPPED TO 88% ON ROOM AIR @ REST AFTER ONLY 3 MINUTES. REPLACED O2 @ 2 LPM. SPO2 INCREASED TO 93%. Addendum: 08/13/19 at 0942 by SADAF MARIEE RT Amended: Links added.
[2019-08-13] MEDS: RT-ALBUTEROL SULF 2.5 MG/3 ML PRE-MIX VIAL INH PRN (09:39)
[2019-08-13] MEDS ORDERED: FLUT1DIS26 IH (10:13)
[2019-08-13] MEDS ORDERED: IPRA3AMP31 IH (10:13)
[2019-08-13] MEDS ORDERED: LEVO125T PO (10:13)
[2019-08-13] MEDS ORDERED: PRED10TA22 PO (10:13)
[2019-08-13] MEDS ORDERED: FLU QUADRIvalent (5+ YOA) 2019-2020 (AFLURIA) 0.5 ML IM ONE (10:33)
[2019-08-13] MEDS: DOCUSATE SODIUM 100 MG (COLACE) CAP PO SCH (10:40)
[2019-08-13] MEDS: FLUTICASONE NASAL SPRAY (FLONASE) 16 GM BTL NS SCH (10:45)
[2019-08-13] MEDS: ENOXAPARIN 40 MG/0.4 ML (LOVENOX) SYR SC SCH (11:45)
[2019-08-13] MEDS ORDERED: RT-ALBUTEROL/IPRATROPIUM 3 ML (DUONEB) VIAL INH PRN (12:00)
[2019-08-13] MEDS ORDERED: RT-ALBUINH IH (12:24)
[2019-08-13] MEDS ORDERED: RT-ALBUTEROL/IPRATROPIUM 3 ML (DUONEB) VIAL INH SCH (14:00)
--- NOTE | 2019-08-13 14:18 | Discharge Summary ---
Discharge Summary Hospital Course Problems/Dx: (1) Acute respiratory failure with hypoxia Status: Acute (2) COPD with acute exacerbation Status: Acute (3) Leukocytosis Status: Acute (4) Hypothyroidism Status: Acute Hospital Course Date of Admission: Aug 10, 2019 at 09:31 Admission Diagnosis : Acute respiratory failure with hypoxia Family Physician/Provider: Ainsley Ruano Physician Date of Discharge: 08/13/19 Discharge Diagnosis: COPD with acute exacerbation Hospital Course: Andreea Dye is a 54-year-old female with no known past medical history who presented with shortness of breath and was admitted with an acute COPD exacerbation. She was treated with steroids and nebulizers and improved. She was started on levothyroxine for hypothyroidism. She will need a repeat TSH with her PCP to adjust her levothyroxine. She has not formally been diagnosed with COPD and will need to establish with Dr. Newman as an outpatient. She was discharged home on 2 L of oxygen continuously. Labs and Pending Lab Test: Laboratory Tests 08/13/19 06:45: White Blood Count 20.3H, Red Blood Count 4.24L, Hemoglobin 13.4, Hematocrit 40, Mean Corpuscular Volume 95, Mean Corpuscular Hemoglobin 32, Mean Corpuscular Hemoglobin Concent 33, Red Cell Distribution Width 13.2, Platelet Count 219, Mean Platelet Volume 9.6, Neutrophils (%) (Auto) 82H, Lymphocytes (%) (Auto) 13, Monocytes (%) (Auto) 5, Eosinophils (%) (Auto) 0, Basophils (%) (Auto) 0, Neutr ophils # (Auto) 16.5H, Lymphocytes # (Auto) 2.6, Monocytes # (Auto) 1.1H, Eosinophils # (Auto) 0.0, Basophils # (Auto) 0.0, Sodium Level 144, Potassium Level 3.2L, Chloride Level 106, Carbon Dioxide Level 24, Anion Gap 14, Blood Urea Nitrogen 11, Creatinine 0.69, Estimat Glomerular Filtration Rate > 60, BUN/Creatinine Ratio 16, Glucose Level 87, Calcium Level 8.5, Magnesium Level 1.8 Microbiology 08/10/19 Blood Culture - Preliminary, Resulted No growth 08/10/19 Influenza Types A,B Antigen (LYNNE) - Final, Complete Home Meds Active Proair Hfa (Albuterol Sulfate) 1 Puff Puff 2 Puff IH Q4H 1 PUFF = 90 MCG Prednisone 10 Mg Tab.ds.pk 10 Mg PO DAILY Take 6 tabs(60mg)daily,decrease by 1 tab(10mg)every other day. Advair 250-50 Diskus (Fluticasone/Salmeterol) 1 Each Blst.w.dev 1 Each IH BID 90 Days Synthroid (Levothyroxine Sodium) 125 Mcg Tablet 125 Mcg PO DAILY@0630 90 Days Assessment/Pt Instructions Take medications as prescribed. Wear 2 L of oxygen continuously. Establish with a primary care physician. Follow up with Dr. Newman, pulmonology. Discharge Planning: <30 minutes discharge planning Discharge Instructions Discharge Diet: No Restrictions Activity as Tolerated: Yes Discharge Physical Examination Vital Signs Vital Signs Date Time Temp Pulse Resp B/P (MAP) Pulse Ox O2 Delivery O2 Flow Rate FiO2 08/13/19 12:10 36.5 96 22 169/99 (122) 91 Nasal Cannula 2.50 08/11/19 08:00 94 General Appearance: No Apparent Distress, WD/WN, Anxious HEENT: PERRL/EOMI, Pharynx Normal Respiratory: Chest Non Tender, Lungs Clear, No Respiratory Distress Cardiovascular: Regular Rate, Rhythm, No Edema, No Murmur Gastrointestinal: Normal Bowel Sounds, Non Tender, Soft Extremity: Normal Inspection, Non Tender, No Pedal Edema Skin: Normal Color, Warm/Dry Neurologic/Psychiatric: Alert, Oriented x3, No Motor/Sensory Deficits, Normal Mood/Affect Allergies: Coded Allergies: morphine (Verified Allergy, Unknown, 08/10/19) Discharge Summary Date of Admission Aug 10, 2019 at 09:31 Date of Discharge Discharge Date: Aug 13, 2019 Discharge Time: 13:00 Admission Diagnosis Acute respiratory failure with hypoxia Discharge Diagnosis COPD with acute exacerbation (1) Acute respiratory failure with hypoxia Status: Acute (2) COPD with acute exacerbation Status: Acute (3) Leukocytosis Status: Acute (4) Hypothyroidism Status: Acute Clinical Quality Measures DVT/VTE Risk/Contraindication: Risk Factor Score Per Nursin RFS Level Per Nursing on Admit: 2=Moderate SHUBHAM YATES MD Aug 13, 2019 14:01
--- NOTE | 2019-08-13 14:39 | NUR ---
CM/SS: Visited with pt related to discharge plan per consult Plan: Assist pt with medication cost and oxygen, and pt can return home. Pt has no insurance and limited income. DME: Oxygen to be provided through [facility] due to self pay status. Summary: Pt presents with needing to be discharged with medications and oxygen, however she does not have insurance and limited income. Pt has talked with financial services and seems to be motivated to get information needed based on her self pay status. Pt is encouraged to obtain a primary care physician in [place] where she is from in order that she can get her medications. 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 The cost that the hospital will assist with is $33.96. Pt is explained the process for taking the vouchers to pharmacy and obtain medications. Pt is encouraged to follow up and obtain physician. PT does verbalize understanding.
--- NOTE | 2019-08-16 10:20 | Physician Query Clarification ---
PQ-Further Specificity Admission/Discharge Admission Date: Aug 10, 2019 at 09:31 Discharge Date: Aug 13, 2019 at 12:55 The medical record reflects the following clinical scenario: History/Risk Factors: fever with hypoxia and PNA Clinical Findings: H&P note Sepsis; PNA clinically without infiltrate on CXR likely due to dehydration will repeat tomorrow. Wheezing with hypoxia and fever T37.2, P105, R18, Lactic acid 1.62, WBC 7.7 08/10 > 25.0 08/12 Treatment: Rocephin but stopped on 08/12, Steroids, nebulizers Question: Can you further specify if sepsis is a clinically valid diagnosis per the clinical indicators above? Sepsis was documented in the (ED note, H&P note & Progress note on 08/11/2019) with no further documentation in the medical record. Please document a response in the Progress Notes or Discharge Summary. 1. Yes, sepsis is a clinically valid diagnosis 2. No, sepsis is NOT a clinically valid diagnosis 3. Other, with explanation of the clinical findings. 4. Clinically undetermined, no explanation for the clinical findings. PHYSICIAN RESPONSE Can you specify per above: 2 Please remember a lack of response to the above will prompt a phone page by CDI/Coding staff. In responding to this query, please exercise your independent professional judgment. The purpose of this communication is to more accurately reflect the complexity of your patients condition. The fact that a question is asked does not imply that any particular answer is desired or expected. Thank you for your timely response to this clarification. Requestors name: Esme THIS PHYSICIAN QUERY FORM IS A PERMANENT PART OF THE MEDICAL RECORD GAMA LA Aug 16, 2019 10:20 SHUBHAM YATES MD Aug 27, 2019 15:23
--- NOTE | 2019-09-01 09:27 | Physician Query Clarification ---
PQ-Conflicting Diagnosis Admission/Discharge Admission Date: Aug 10, 2019 at 09:31 Discharge Date: Aug 13, 2019 at 12:55 The medical record reflects the following clinical scenario: History/Risk Factors: Acute respiratory failure w/hypoxia, COPD AE, HTN, history smoking Clinical Findings: dyspnea, wheezing, fever, hypoxia, no infiltrate on chest xray Treatment: IV Azithromycin, IV Ceftriaxone, Nebulizers, O2 Question: Do you agree with the impression of the clinical pneumonia per Dr. Machuca. Please document a response in Progress Note or Discharge Summary. 1. Yes 2. No 3. Other, with explanation of clinical findings 4. Clinically undetermined, no explanation for clinical findings. PHYSICIAN RESPONSE Do you agree w/Consulting Dx?: No Please remember a lack of response to the above will prompt a phone page by CDI/Coding staff. In responding to this query, please exercise your independent professional judgment. The purpose of this communication is to more accurately reflect the complexity of your patients condition. The fact that a question is asked does not imply that any particular answer is desired or expected. Thank you for your timely response to this clarification. Requestors name: Gama THIS PHYSICIAN QUERY FORM IS A PERMANENT PART OF THE MEDICAL RECORD GAMA LA Sep 01, 2019 09:26 SHUBHAM YATES MD Sep 08, 2019 16:25
--- NOTE | 2019-09-01 09:32 | Physician Query Clarification ---
GAMA LA 09/01/19 0932: PQD17 Principal Diagnosis Principal Diagnosis Document Diagnosis QUESTION: Please specify the condition(s) that was chiefly responsible for oc casioning the admission to the hospital after study/evaluation based on your medical judgment. Clinical Indicators/Findings On Admit/Eval/Treatment: Dr. Machuca H&P, PN's dyspnea, wheezing, fever, hypoxia, hx smoking, no infiltrate on chest xray. Clinical pneumonia per Dr. Machuca DS per Dr. Jalloh - Acute respiratory failure with hypoxia and COPD AE Source Document: H&P, PN's and CXR, DS Credit Collections Manager Note Credit Collections Manager Note Please remember a lack of response to the above will prompt a phone page by CDI/coding staff. In responding to this query, please exercise your independent professional judgment. The purpose of this communication is to more accurately reflect the complexity of your patients condition. The fact that a question is asked does not imply that any particular answer is desired or expected. Thank you for your timely response to this clarification. Requestors name: Gama THIS PHYSICIAN QUERY FORM IS A PERMANENT PART OF THE MEDICAL RECORD SHUBHAM JALLOH MD 09/08/19 1627: PQD17 Principal Diagnosis Question Chief Reason for Admission Aft: Acute exacerbation of COPD GAMA LA Sep 01, 2019 09:32 SHUBHAM JALLOH MD Sep 08, 2019 16:27
== END 2019-08-13 12:55 | disposition home or self-care (01) | DRG 190 ==
LOC: EDUNIT# 06:46 → ER FS 06:50 → 4TH 09:31
PROVIDERS: ADMIT Internal Medicine; ATTEND Internal Medicine
DX: J44.1 Chronic obstructive pulmonary disease with (acute) exacerbation (principal); J96.01 Acute respiratory failure with hypoxia; J18.9 Pneumonia, unspecified organism; I10 Essential (primary) hypertension; E03.9 Hypothyroidism, unspecified; E86.0 Dehydration; J44.0 Chronic obstructive pulmonary disease with (acute) lower respiratory infection; Z87.891 Personal history of nicotine dependence; Z91.14 Patient's other noncompliance with medication regimen
CPT/HCPCS: 36415; 71046; 71260; 80048; 80053; 82805; 83605; 83735; 83880; 84145; 84443; 85007; 85025; 85027; 85379; 85610; 85730; 87040; 87804; 94640; 94664; 94760; 94761; 96361; 96365; 96375

== ENCOUNTER → 2019-08-17 | Outpatient (CLI) | payer SELFPAY ==
[~2019-08-17] MED LIST: FLUT1DIS26 IH; IBUP-2055 PO; IPRA3AMP31 IH; LEVO125T PO; PRED10TA22 PO; RT-ALBUINH IH; TETR15DR16 OU
--- NOTE | 2019-08-17 14:41 | Diagnostic Imaging Report ---
INDICATION: Pneumonia. TIME OF EXAM: 2:33 p.m. COMPARISON: Correlation is made with prior chest from 08/11/2019. FINDINGS: Heart size is stable. There appear to be some patchy infiltrates in the lung bases, new since prior exam. Mid and upper lung gates are clear. No effusion or pneumothorax is seen. IMPRESSION: Development of patchy bibasilar infiltrates. Dictated by: Dictated on workstation # [id number]
== END ==
LOC: RAD FS 14:19
PROVIDERS: ATTEND Family Medicine
DX: J44.1 Chronic obstructive pulmonary disease with (acute) exacerbation (principal); J18.9 Pneumonia, unspecified organism
CPT/HCPCS: 71046

== ENCOUNTER → 2019-10-04 | Outpatient (CLI) | payer SELFPAY ==
[~2019-10-04] MED LIST changes: +CATHETER FLUSH 10 ML SYR IV PRN; +HOLD METFORMIN - RECEIVED CONTRAST 20 ML VIAL IV SCH; -IBUP-2055 PO; +IBUP-2473 PO; +IOHEXOL 350 MG/ML 100 ML (OMNIPAQUE 350) VIAL IV ONE; +NS 100 ML (IVPB) BAG IV ONE; +RT-ALBUTEROL SULF 2.5 MG/3 ML PRE-MIX VIAL INH ONE
[2019-10-04 12:40] LABS: BUN/CREATININE RATIO 16; CREATININE SERUM 0.81 MG/DL (0.60-1.30); GFR ESTIMATED > 60
== END ==
LOC: RT 12:13
PROVIDERS: ATTEND Nurse Practitioner Family
DX: R09.02 Hypoxemia (principal); M79.89 Other specified soft tissue disorders; F17.200 Nicotine dependence, unspecified, uncomplicated
CPT/HCPCS: 36415; 82565; 84520; 94060; 94726; 94729